=== PATIENT | female | born 1980 ===

== ENCOUNTER 2020-09-09 18:10 | Emergency (ER) | payer SELFPAY ==
[~2020-09-09] VITALS: Ht 165.1 cm; Wt 90.9 kg
[2020-09-09 18:26] VITALS: BP 128/80; Ht 165.1 cm; Wt 90.9 kg
[2020-09-09] MEDS ORDERED: STERAPRED 5MG 65 M1 PO (21:06)
== END 2020-09-09 21:31 | disposition home or self-care (01) ==
LOC: D.ER 18:10
DX: J02.8 Acute pharyngitis due to other specified organisms (principal)